=== PATIENT | female | born 1970 ===

== ENCOUNTER 2021-12-29 17:54 | Emergency (ER) | payer OTHER ==
[~2021-12-29] VITALS: Ht 160 cm; Wt 113.0 kg
[2021-12-29] MEDS ORDERED: IBUPROFEN 600MG TABLET PO ONE (22:15)
[2021-12-29] MEDS ORDERED: SULFAMETHOXAZOLE/TRIMETHOPRIM 800/160MG TABLET PO ONE (22:15)
[2021-12-29 22:43] VITALS: BP 154/94
== END 2021-12-29 23:03 | disposition home or self-care (01) ==
LOC: ER 17:54
DX: L02.811 Cutaneous abscess of head [any part, except face] (principal)
CPT/HCPCS: 10060; 99283